=== PATIENT | male | born 1970 | race American Indian/Alaskan Native ===

== ENCOUNTER 2021-05-23 12:09 | Emergency (ER) | payer OTHER ==
[2021-05-23 12:26] VITALS: BP 168/119
--- NOTE | 2021-05-23 13:34 | Emergency Department Report ---
ED Back Pain/Injury HPI - General Chief Complaint: Back Pain/Injury Stated Complaint: WORK INJURY Time Seen by Provider: 05/23/21 13:07 Source: patient Limitations: No Limitations - History of Present Illness Initial Comments: Patient is a 50-year-old male presents emergency room with complaints of back pain that began just prior to arrival. Patient states that he was at work when he was lifting a 4 gallon pail and felt a pulling sensation in his upper back. He states his pain is worse with movement and twisting. He denies falling to the ground. He denies any numbness, weakness, bowel or bladder incontinence, any other injury. He denies any history of any back injuries. He has a past medical history of hypertension and states he took his lisinopril this morning, he states that whenever he goes to the emergency room his blood pressure is elevated but when he follows up with his primary care doctor his blood pressure has stabilized, he denies any symptoms related to his blood pressure. No allergies to medications. - Related Data Previous Rx's Medication Instructions Recorded Last Taken Type Menthol/Camphor [[facility] [place] 1 applicatio TP BID #18 oint...g. 05/23/21 Unknown Rx Ointment] Naproxen [EC-Naprosyn] 500 mg PO BID PRN #14 tablet. 05/23/21 Unknown Rx methOCARBAMOL [Robaxin TAB] 500 mg PO BID PRN #14 tab 05/23/21 Unknown Rx Allergies Allergy/AdvReac Type Severity Reaction Status Date / Time No Known Allergies Allergy Unverified 05/23/21 12:23 ED Review of Systems ROS: Stated complaint: WORK INJURY Other details as noted in HPI Comment: All other systems reviewed and negative ED Past Medical Hx - Past Medical History Previous Medical History?: Yes Hx Hypertension: Yes - Surgical History Past Surgical History?: Yes Additional Surgical History: achilles tendon repair and compartment syndrome surgery - Medications Home Medications: Home Medications Medication Instructions Recorded Confirmed Last Taken Type Menthol/Camphor [[facility] [place] 1 applicatio TP BID #18 oint...g. 05/23/21 Unknown Rx Ointment] Naproxen [EC-Naprosyn] 500 mg PO BID PRN #14 tablet. 05/23/21 Unknown Rx methOCARBAMOL [Robaxin TAB] 500 mg PO BID PRN #14 tab 05/23/21 Unknown Rx ED Physical Exam - General Limitations: No Limitations General appearance: alert, in no apparent distress - Head Head exam: Present: atraumatic, normocephalic - Eye Eye exam: Present: normal appearance - ENT ENT exam: Present: mucous membranes moist - Neck Neck exam: Present: normal inspection, full ROM. Absent: tenderness, meningismus - Respiratory Respiratory exam: Present: normal lung sounds bilaterally. Absent: respiratory distress, wheezes, rales, rhonchi, stridor, chest wall tenderness, accessory muscle use, decreased breath sounds, prolonged expiratory - Cardiovascular Cardiovascular Exam: Present: regular rate, normal rhythm, normal heart sounds. Absent: systolic murmur, diastolic murmur, rubs, gallop - Back Exam Back exam: Present: normal inspection, full ROM, paraspinal tenderness (left sided T-spine paraspinal muscular ttp, no midline C-spine, T-spine or L-spine ttp, no step offs, no deformities). Absent: vertebral tenderness - Neurological Exam Neurological exam: Present: alert, oriented X3, CN II-XII intact, normal gait. Absent: motor sensory deficit - Psychiatric Psychiatric exam: Present: normal affect, normal mood - Skin Skin exam: Present: warm, dry, intact ED Course Vital Signs 05/23/21 12:25 Temperature 98.4 F Pulse Rate 73 Respiratory 16 Rate Blood Pressure 168/119 O2 Sat by Pulse 97 Oximetry ED Medical Decision Making - Radiology Data Radiology results: report reviewed Ordering Physician: MEÑO WELCH Date of Service: 05/23/21 Procedure(s): XR spine thoracic 3V Accession Number(s): [id number] cc: MEÑO WELCH Fluoro Time In Minutes: . THORACIC SPINE 3 VIEWS INDICATION / CLINICAL INFORMATION: back pain after lifting an object at work. COMPARISON: None available. FINDINGS: VERTEBRAE: No fracture. No significant malalignment. DISC SPACES:Mild thoracic spondylosis ADDITIONAL FINDINGS: None. IMPRESSION: 1. No significant abnormality. Signer Name: Justin Palma MD Signed: 05/23/2021 1:43 PM Workstation Name: [id number] Transcribed By: TL Dictated By: Justin Palma MD Electronically Authenticated By: Justin Palma MD Signed Date/Time: 05/23/21 1343 DD/ 1343 TD/TT: - Medical Decision Making Patient is a 50-year-old male presents emergency room with complaints of back pain that began just prior to arrival. Patient states that he was at work when he was lifting a 4 gallon pail and felt a pulling sensation in his upper back. He states his pain is worse with movement and twisting. He denies falling to the ground. He denies any numbness, weakness, bowel or bladder incontinence, any other injury. He denies any history of any back injuries. He has a past medical history of hypertension and states he took his lisinopril this morning, he states that whenever he goes to the emergency room his blood pressure is elevated but when he follows up with his primary care doctor his blood pressure has stabilized, he denies any symptoms related to his blood pressure. No lui rgies to medications. Vitals with elevated blood pressure, otherwise stable, discussed lifestyle modifications, keeping a blood pressure log, following up with primary care. On exam:left sided T-spine paraspinal muscular ttp, no midline C-spine, T-spine or L-spine ttp, no step offs, no deformities, no focal neuro deficits, ambulatory without difficulty. X-ray thoracic spine: 1. No significant abnormality symptoms and examination appear most consistent with muscle strain. Patient given prescription for medications. Advised patient Please take medication as prescribed. Do not drive or operate machinery when taking muscle relaxer Robaxin. May use ice pack, heating pad, rest, and epsom salt bath. Do not use heat or ice while using ointment. Follow-up with a primary care doctor for reexamination. Return to emergency room for new or symptoms. Critical care attestation.: If time is entered above; I have spent that time in minutes in the direct care of this critically ill patient, excluding procedure time. ED Disposition Clinical Impression: Back pain Qualifiers: Back pain location: thoracic back pain Chronicity: acute Back pain laterality: left Qualified Code(s): M54.6 - Pain in thoracic spine Disposition: DC-01 TO HOME OR SELFCARE Is pt being admited?: No Does the pt Need Aspirin: No Condition: Stable Instructions: Acute Back Pain, Adult, Muscle Strain, [id number] Additional Instructions: Please take medication as prescribed. Do not drive or operate machinery when taking muscle relaxer Robaxin. May use ice pack, heating pad, rest, and epsom salt bath. Do not use heat or ice while using ointment. Follow-up with a primary care doctor for reexamination. Return to emergency room for new or symptoms. Prescriptions: Naproxen [EC-Naprosyn] 500 mg PO BID PRN #14 tablet.dr PRN Reason: pain methOCARBAMOL [Robaxin TAB] 500 mg PO BID PRN #14 tab PRN Reason: muscle spasm/pain Menthol/Camphor [[facility] [place] Ointment] 1 applicatio TP BID #18 oint...g. Referrals: your, primary care doctor [Other] - 2-3 Days Forms: Work/School Release Form(ED) Time of Disposition: 13:52 Print Language: UPPER SORBIAN
--- NOTE | 2021-05-23 13:47 | XRay Report ---
. THORACIC SPINE 3 VIEWS INDICATION / CLINICAL INFORMATION: back pain after lifting an object at work. COMPARISON: None available. FINDINGS: VERTEBRAE: No fracture. No significant malalignment. DISC SPACES:Mild thoracic spondylosis ADDITIONAL FINDINGS: None. IMPRESSION: 1. No significant abnormality. Signer Name: Justin Palma MD Signed: 05/23/2021 1:43 PM Workstation Name: [id number]
== END 2021-05-23 14:36 | disposition home or self-care (01) ==
LOC: ED 12:09
DX: M54.6 Pain in thoracic spine (principal); I10 Essential (primary) hypertension; Z98.890 Other specified postprocedural states; Z79.899 Other long term (current) drug therapy; X50.9XXA Other and unspecified overexertion or strenuous movements or postures, initial encounter; Y93.89 Activity, other specified; Y92.89 Other specified places as the place of occurrence of the external cause; Y99.0 Civilian activity done for income or pay
CPT/HCPCS: 72072

== ENCOUNTER 2022-08-18 17:06 | Emergency (ER) | payer OTHER ==
[2022-08-18 17:28] VITALS: BP 239/145
== END 2022-08-19 03:33 | disposition left against medical advice (07) ==
LOC: ED 17:06
DX: R51.9 Headache, unspecified (principal); R42 Dizziness and giddiness; R50.9 Fever, unspecified; Z53.21 Procedure and treatment not carried out due to patient leaving prior to being seen by health care provider